=== PATIENT | female | born 1970 | race Caucasian/White ===

== ENCOUNTER 2018-10-24 01:20 | Emergency (ER) | payer OTHER ==
--- NOTE | 2018-10-24 01:54 | ERPHSYRPT ---
- History of Present Illness Time Seen by Provider: 10/24/18 01:49 Source: patient Exam Limitations: no limitations Patient Subjective Stated Complaint: Pt c/o frequent urination with burning and "some blood" in it. Denies any nausea, vomiting, or diarrhea. Triage Nursing Assessment: Pt alert and oriented. Appears anxious. Answers questions appropriately. Skin color normal for race. Lower abdomen distended but soft. Bowel sounds present x 4 quadrants. Physician History: The patient is a 47-year-old female with her complaining of increased urinary frequency and discomfort for the past 2 days. She states that she also has some mild discomfort in her back 2 days ago. She's had a urinate every several minutes. Yesterday she thought there was blood in her urine. She denies fever or chills. Her past medical history significant for high cholesterol but she states she does not take the cholesterol medicine daily like she should. Timing/Duration: day(s) (2), gradual onset, worse Activites at Onset: none Quality: burning Onset Location: urethral Pain Radiation: none Severity of Pain-Max: mild Severity of Pain-Current: mild Prior abdominal problems: none Sexual intercourse history: single partner Modifying Factors: Improves With: urinating Associated Symptoms: dysuria, urinary frequency, No fever Allergies/Adverse Reactions: No Known Drug Allergies Allergy (Unverified 10/24/18 01:41) Hx Tetanus, Diphtheria Vaccination/Date Given: Yes Hx Influenza Vaccination/Date Given: No - Review of Systems Constitutional: No Fever, No Chills Eyes: No Symptoms Ears, Nose, & Throat: No Symptoms Respiratory: No Cough, No Dyspnea Cardiac: No Chest Pain, No Edema, No Syncope Abdominal/Gastrointestinal: No Abdominal Pain, No Nausea, No Vomiting, No Diarrhea Genitourinary Symptoms: Dysuria, Frequency, Hematuria, Urgency Musculoskeletal: No Back Pain, No Neck Pain Skin: No Rash Neurological: No Symptoms Psychological: No Symptoms Endocrine: No Symptoms Hematologic/Lymphatic: No Symptoms Immunological/Allergic: No Symptoms All Other Systems: Reviewed and Negative - Past Medical History Pertinent Past Medical History: Yes Neurological History: No Pertinent History ENT History: No Pertinent History Cardiac History: High Cholesterol Respiratory History: No Pertinent History Endocrine Medical History: No Pertinent History Musculoskeletal History: Fractures GI Medical History: No Pertinent History Psycho-Social History: No Pertinent History Female Reproductive Disorders: Menstrual Problems - Past Surgical History Past Surgical History: Yes Neuro Surgical History: No Pertinent History Cardiac: No Pertinent History Respiratory: No Pertinent History Gastrointestinal: No Pertinent History Genitourinary: No Pertinent History Musculoskeletal: No Pertinent History Female Surgical History: Tubal Ligation - Social History Smoking Status: Never smoker Drug Use: none Patient Lives Alone: No - Female History Hx Last Menstrual Period: 10/18/18 Hx Now: No - Nursing Vital Signs Nursing Vital Signs: Initial Vital Signs Temperature 98.7 F 10/24/18 01:25 Pulse Rate 109 H 10/24/18 01:25 Respiratory Rate 20 10/24/18 01:25 Blood Pressure 182/106 10/24/18 01:25 O2 Sat by Pulse Oximetry 98 10/24/18 01:25 Pain Scale Pain Intensity 0 - Physical Exam General Appearance: no apparent distress, alert Eye Exam: PERRL/EOMI, eyes nml inspection Ears, Nose, Throat Exam: normal ENT inspection, TMs normal, pharynx normal, moist mucous membranes Neck Exam: normal inspection, non-tender, supple, full range of motion Respiratory Exam: normal breath sounds, lungs clear, No respiratory distress Cardiovascular Exam: regular rate/rhythm, normal heart sounds, normal peripheral pulses Gastrointestinal/Abdomen Exam: soft, No tenderness, No mass Pelvic Exam: not done Rectal Exam: not done Back Exam: normal inspection, normal range of motion, No CVA tenderness, No vertebral tenderness Extremity Exam: normal inspection, normal range of motion, pelvis stable Neurologic Exam: alert, oriented x 3, cooperative, cotton tier II-XII nml as tested, normal mood/affect, sensation nml, No motor deficits Skin Exam: normal color, warm, dry Lymphatic Exam: No adenopathy SpO2 Interpretation: normal SpO2: 98 Oxygen Delivery: Room Air Ordered Tests: Active Orders 24 hr Category Date Time Status CULTURE,URINE Stat Lab 10/24/18 02:17 Received UA W/RFX UR CULTURE Stat Lab 10/24/18 02:17 Completed Lab/Rad Data: Laboratory Results 10/24/18 Range/Units 02:17 Urine Color STRAW (YELLOW) Urine Appearance CLEAR (CLEAR) Urine pH 6.0 (5-6) Ur Specific Shirley 1.002 (1.005-1.025) Urine Protein NEGATIVE (Negative) Urine Ketones NEGATIVE (NEGATIVE) Urine Blood LARGE (0-5) Michael/ul Urine Nitrite NEGATIVE (NEGATIVE) Urine Bilirubin NEGATIVE (NEGATIVE) Urine Urobilinogen NEGATIVE (0-1) mg/dL Ur Leukocyte Esterase SMALL (NEGATIVE) Urine WBC (Auto) 11-15 (0-5) /HPF Urine RBC (Auto) 6-10 (0-2) /HPF U Epithel Cells (Auto) RARE (FEW) /HPF Urine Bacteria (Auto) MODERATE (NEGATIVE) /HPF Urine Mucus (Auto) SLIGHT (NEGATIVE) /HPF Urine Culture Reflexed YES (NO) Urine Glucose NEGATIVE (NEGATIVE) mg/dL - Progress Progress Note: 10/24/18 01:54 Pt had to urinate 4 times within 15 mins upon entering ER. 10/24/18 02:37 rocephin 1 gm IM. Counseled pt/family regarding: lab results, diagnosis - Departure Time of Disposition: 02:37 Departure Disposition: Home Clinical Impression: UTI (urinary tract infection) Condition: Stable Critical Care Time: No Referrals: SHANNAN GROSSMAN [Primary Care Provider] - Additional Instructions: You have a UTI. You were given Rocephin 1 g by IM in the ER. Take ciprofloxacin 500 mg 2 times a day for 7 days. Follow-up with your primary medical doctor in 3 or 4 days. Prescriptions: Ciprofloxacin [Cipro 500 MG] 1 tab PO BID #14 tablet
[2018-10-24 02:32] LABS: Appearance CLEAR (CLEAR); Bilirubin NEGATIVE (NEGATIVE); Blood LARGE Ery/ul (0-5); Glucose NEGATIVE (NEGATIVE); Ketones NEGATIVE (NEGATIVE); Leukocyte Esterase SMALL (NEGATIVE); Nitrite NEGATIVE (NEGATIVE); Protein,Urine Dip NEGATIVE (Negative); Specific Gravity 1.002 (1.005-1.025); Urobilinogen NEGATIVE mg/dL (0-1)
[2018-10-24] MEDS ORDERED: Rocephin 1000 MG INJ IM ONE (02:37)
[2018-10-24 02:45] VITALS: PULSE 97
[2018-10-24] MEDS ORDERED: Rocephin 1000 MG INJ ONE (02:48)
[2018-10-24] MEDS ORDERED: ZOFRAN ODT 4 MG PO ONE (03:06)
[2018-10-24] MEDS ORDERED: ZOFRAN ODT 4 MG ONE (03:07)
[2018-10-24 03:42] VITALS: BP 147/85; O2SAT 99
== END 2018-10-24 03:42 | disposition home or self-care (01) ==
LOC: ED 01:20
DX: N39.0 Urinary tract infection, site not specified (principal)
CPT/HCPCS: 81001; 87077; 87086; 87186; 96372; 99284; J0696; Q0162

== ENCOUNTER 2022-05-08 05:57 | Day surgery (SDC) | payer OTHER ==
[2022-05-08] MEDS ORDERED: Lactated Ringers 1,000 ML IV ONE (06:39)
[2022-05-08] MEDS ORDERED: Lactated Ringers 1,000 ML IV SCH (07:00)
[2022-05-08] MEDS ORDERED: DIPRIVAN 200 MG/20 ML IV ONE ×2 (07:47→08:10)
[2022-05-08] MEDS ORDERED: Versed 2 MG/2 ML Injection ONE (07:47)
[2022-05-08] MEDS ORDERED: SUBLIMAZE 100 MCG/2 ML ONE (08:05)
[2022-05-08 09:15] VITALS: BP 152/97; PULSE 92; O2SAT 99
--- NOTE | 2022-05-08 10:43 | OP ---
SURGERY DATE/TIME: 05/08/2022 0747 PREOPERATIVE DIAGNOSIS: Positive Cologuard. POSTOPERATIVE DIAGNOSIS: A 1 cm pedunculated polyp in the descending colon. PROCEDURE: Colonoscopy with hot snare polypectomy. SURGEON: Dr. Devin Cummings. ANESTHESIA: Medications given by anesthesia department. HISTORY: The patient is a 51-year-old white female presenting now for colonoscopic evaluation. She reports she had a positive Cologuard examination. The patient was felt the need to have endoscopic evaluation. She was appraised of the risks of the procedure including the risk of perforation, phlebitis, untoward reaction to medication, bleeding and missed lesions. The patient verbalized her understanding and desired to have the procedure performed. DESCRIPTION OF PROCEDURE: The patient was given the medications by the anesthesia department. She had continuous pulse oximetry, ECG monitoring and intermittent blood pressure monitoring during the examination. She was placed in the left lateral decubitus position. A digital rectal examination was performed and revealed normal anal sphincter tone and no masses. The flexible Olympus pediatric colonoscope was used to intubate the rectum. A view of the colon was developed sequentially to the cecum. Upon insertion and withdrawal was noted a fair amount of liquid material which was suctioned dry to the best of our ability. We did run into an approximately 1 cm pedunculated polyp in the descending colon and this is removed using hot snare polypectomy and retrieved for pathologic evaluation. The scope was removed from the patient who tolerated the procedure well and was sent back to OP recovery in good condition. The prep was noted to be fair to good.
== END 2022-05-08 09:25 | disposition home or self-care (01) ==
LOC: SDC 05:57
PROVIDERS: ATTEND Family Medicine
DX: D12.4 Benign neoplasm of descending colon (principal); R19.5 Other fecal abnormalities
CPT/HCPCS: J2250; J2704; J3010

== ENCOUNTER 2024-05-07 19:35 | Emergency (ER) | payer OTHER ==
[2024-05-07 20:03] VITALS: RESP 18; TEMP 97.7
[2024-05-07] MEDS ORDERED: MOTRIN 600 MG ONE (20:07)
[2024-05-07] MEDS ORDERED: PERCOCET TABLET 5/325MG ONE ×2 (20:07→20:26)
[2024-05-07] MEDS: MOTRIN 600 MG PO ONE (20:08)
[2024-05-07] MEDS: PERCOCET TABLET 5/325MG PO STA ×2 (20:09→20:29)
--- NOTE | 2024-05-07 20:24 | ERPHSYRPT ---
- History of Present Illness Time Seen by Provider: 05/07/24 19:55 Source: patient, family Exam Limitations: no limitations Patient Subjective Stated Complaint: R ankle injury Triage Nursing Assessment: pt wheeled to room by staff and transferred to bed by self, pt alert and oriented x3, skin pwd, pt presents with a R ankle injury after twisting ankle in a hole, R ankle swollen, pt denies any foot pain. cap refill less than 2 secs bilateral, +2 pedal pulses Physician History: This a 53-year-old white female patient of Dr. Villarreal who was running in her yard and her right foot was caught in a hole and she twisted her right ankle. Method of Injury: twisted Occurred: just prior to arrival Quality: constant, aching, throbbing Severity of Pain-Max: moderate Severity of Pain-Current: moderate Lower Extremities Pain: ankle: right Allergies/Adverse Reactions: No Known Drug Allergies Allergy (Verified 05/07/24 19:54) Home Medications: No Reportable Medications [No Reported Medications] 05/08/22 [History] Hx Tetanus, Diphtheria Vaccination/Date Given: No Hx Influenza Vaccination/Date Given: No Hx Pneumococcal Vaccination/Date Given: No Immunizations Up to Date: No Travel Risk - International Travel Have you traveled outside of the country in past 3 weeks: No - Emerging Infectious Disease Are you exhibiting symptoms associated with any current EIDs: No - Review of Systems Constitutional: No Symptoms Eyes: No Symptoms Ears, Nose, & Throat: No Symptoms Respiratory: No Symptoms Cardiac: No Symptoms Abdominal/Gastrointestinal: No Symptoms Genitourinary Symptoms: No Symptoms Musculoskeletal: Fall, Injury (Right ankle) Skin: No Symptoms Neurological: No Symptoms Psychological: No Symptoms Endocrine: No Symptoms Hematologic/Lymphatic: No Symptoms Immunological/Allergic: No Symptoms All Other Systems: Reviewed and Negative - Past Medical History Pertinent Past Medical History: Yes Neurological History: No Pertinent History ENT History: No Pertinent History Cardiac History: High Cholesterol, Hypertension Respiratory History: No Pertinent History Endocrine Medical History: No Pertinent History Musculoskeletal History: Fractures GI Medical History: No Pertinent History History: No Pertinent History Psycho-Social History: No Pertinent History Female Reproductive Disorders: Menstrual Problems Other Medical History: hx of pelvic fx l4 l5, ankle fx - Past Surgical History Past Surgical History: Yes Neuro Surgical History: No Pertinent History Cardiac: No Pertinent History Respiratory: No Pertinent History Gastrointestinal: No Pertinent History Genitourinary: No Pertinent History Musculoskeletal: No Pertinent History Female Surgical History: Tubal Ligation, Other Other Surgical History: uterine ablation - Female History Hx Last Menstrual Period: ablation - Social History Smoking Status: Former smoker Exposure to second hand smoke: No Drug Use: none Patient Lives Alone: No - Social Determinants of Health Will the patient participate in the screening: Yes Do you worry about a steady place to live?: No Do you have any problems with any of the following?: No known problems In the past 12 months,have you had to go without utilities?: No Transportation Issues: No Has anyone in your support network made you feel unsafe?: No Have you or anyone in your house had to go without enough: No - Nursing Vital Signs Nursing Vital Signs: Initial Vital Signs Temperature 97.7 F 05/07/24 19:55 Pulse Rate 91 H 05/07/24 19:55 Respiratory Rate 18 05/07/24 19:55 Blood Pressure 156/74 05/07/24 19:55 O2 Sat by Pulse Oximetry 95 05/07/24 19:55 Pain Scale Pain Intensity 8 - Physical Exam General Appearance: no apparent distress, alert, anxiety Eyes, Ears, Nose, Throat Exam: normal ENT inspection, moist mucous membranes Neck Exam: normal inspection, non-tender, supple, full range of motion Cardiovascular/Respiratory Exam: chest non-tender, no respiratory distress Gastrointestinal/Abdominal Exam: non-tender Back Exam: normal inspection, normal range of motion, No CVA tenderness, No vertebral tenderness Hips Exam: bilateral: non-tender, normal inspection, normal range of motion, no evidence of injury Legs Exam: bilateral leg: non-tender, normal inspection, normal range of motion, no evidence of injury Knees Exam: bilateral knee: non-tender, normal inspection, normal range of motion, no evidence of injury Ankle Exam: right ankle: bone tenderness, limited range of motion, soft tissue tenderness, swelling, left ankle: non-tender, normal inspection, normal range of motion, no evidence of injury Foot Exam: bilateral foot: non-tender, normal inspection, normal range of motion, no evidence of injury Neuro/Tendon Exam: normal sensation, normal motor functions, normal tendon functions, responds to pain, no evidence tendon injury Mental Status Exam: alert, oriented x 3, cooperative Skin Exam: normal color, warm, dry SpO2 Interpretation: normal SpO2: 95 O2 Delivery: Room Air - Course Nursing assessment & vital signs reviewed: Yes Ordered Tests: Active Orders 24 hr Category Date Time Status Abdias Bandage Application -[facility] STAT Care 05/07/24 20:17 Ordered ANKLE (3 VIEWS) Stat Exams 05/07/24 19:57 Taken Medication Summary Discontinued Medications Generic Name Dose Route Start Last Admin Trade Name Uriel PRN Reason Stop Dose Admin Ibuprofen 600 mg 05/07/24 19:57 05/07/24 20:08 Ibuprofen 600 Mg Tablet PO 05/07/24 19:58 600 mg STAT ONE Administration Ibuprofen Confirm 05/07/24 20:07 Ibuprofen 600 Mg Tablet Administered 05/07/24 20:08 Dose 600 mg .ROUTE .STK-MED ONE Oxycodone/Acetaminophen 1 tab 05/07/24 19:57 05/07/24 20:09 Oxycodone Hcl/Apap 5 Mg/325 Mg Tablet PO 05/07/24 19:58 1 tab STAT STA Administration Oxycodone/Acetaminophen Confirm 05/07/24 20:07 Oxycodone Hcl/Apap 5 Mg/325 Mg Tablet Administered 05/07/24 20:08 Dose 1 tab .ROUTE .STK-MED ONE - Progress Progress: improved, pain not gone completely Progress Note: 05/07/24 20:20 My medical decision making and the assignment of low complexity to this patient's medical issue today is based on review of the patient's past medical history, review the patient's medication list, review of patient drug allergy list, history present illness and physical findings on examination. The workup in this patient includes x-ray of the right ankle. I interpreted the preliminary report of the patient's right ankle. I do not appreciate an acute fracture or dislocation. Counseled pt/family regarding: diagnosis, need for follow-up, rad results Medical Desision Making - Independent Historian Additional History obtained from: Spouse - Diagnostic Testing Diagnostic test were ordered, analyzed, and reviewed by me: Yes Radiological Interpretation: Interpreted by me - Risk of complications Low Risk: Low risk of morbidity from additional dx testing or treatment - Departure Departure Disposition: Home Clinical Impression: Right ankle sprain Condition: Stable Critical Care Time: No Referrals: ARMEN VILLARREAL DO [Primary Care Provider] - Follow up/PCP as directed Additional Instructions: Ice packs/ice bath 3 times a day for the next 72 hours. Keep your right lower extremity elevated above the level of your heart when not ambulating. For persistent pain and swelling beyond 72 hours, call your primary care provider or follow-up in the [facility] orthopedic clinic Wednesday through Wednesday 8 AM to 10 AM. It is a walk-in clinic and you do not need an appointment. Your other option is to call Dr. La, our extruder, to make arrangements for an outpatient follow-up evaluation. Take ibuprofen 600 mg 3 times a day with food for the next 5 days. After you complete your Percocet 03/10/2025 take home medicine, you can also add Tylenol to help control your pain.
[2024-05-07 20:44] VITALS: BP 144/66; PULSE 86; O2SAT 96
--- NOTE | 2024-05-08 08:36 | XRAY ---
Indication: Pain. Comparison: None 3 view right ankle demonstrates mild lateral soft tissue swelling. No other bony, articular, or soft tissue abnormalities.
== END 2024-05-07 20:44 | disposition home or self-care (01) ==
LOC: ED 19:35
DX: S93.401A Sprain of unspecified ligament of right ankle, initial encounter (principal); W18.42XA Slipping, tripping and stumbling without falling due to stepping into hole or opening, initial encounter; Y93.02 Activity, running; Y92.007 Garden or yard of unspecified non-institutional (private) residence as the place of occurrence of the external cause; E78.5 Hyperlipidemia, unspecified; I10 Essential (primary) hypertension
CPT/HCPCS: 73610; 99283; A9270-GY